=== PATIENT | female | born 1980 | race Caucasian/White ===

== ENCOUNTER 2022-11-23 08:43 | Emergency (ER) | payer MEDICAID, SELFPAY ==
[2022-11-23 09:11] VITALS: BP 121/57; PULSE 84; RESP 20; TEMP 36.9; O2SAT 99; BMI 30.9
[2022-11-23 10:33] VITALS: BP 140/66; PULSE 83; RESP 20; TEMP 37.1; O2SAT 99
--- NOTE | 2022-11-23 10:42 | ED_ITS ---
HPI - Back Pain/Injury General Chief Complaint: Back Pain/Injury Stated Complaint: Lower back pain/leg pain Time Seen by Provider: 11/23/22 10:13 Source: patient and family Mode of arrival: wheelchair Limitations: no limitations History of Present Illness HPI Narrative: 42 yo female presents to the ER c/o left lower back pain that started 2 days ago when she woke up. She reports the pain started mild and got progressively worse over the last 2 days. It is severe, sharp and throbbing in her left lower back, and radiates to her left buttock and left lower extremity. She has never had pain like this before. No injury or falls. No numbness, weakness or tingling in the left leg just pain. No urinary or bowel incontinence. She has not taken any medications for the pain. MD elicited complaint: back pain Onset (ago): day(s) (2) Timing: progressively worsening Severity: severe Pain scale (0-10): 10 Similar Symptoms Previously: Yes Quality: sharp and spasming Location: left lower back Radiation: buttocks and left upper leg Exacerbating factors: movement and walking Relieving factors: immobilization and supine Context: unknown Associated symptoms: denies other symptoms Work related injury: No Related Data Previous Rx's Medication Instructions Recorded cyclobenzaprine 10 mg tablet 10 mg PO TID PRN muscle spasm #14 11/23/22 tabs lidocaine 5 % topical patch 1 patch topical DAILY #15 ea 11/23/22 (Lidoderm) oxycodone 5 mg tablet 5 mg PO Q8H PRN pain #6 tabs 11/23/22 prednisone 20 mg tablet 40 mg PO DAILY #10 tabs 11/23/22 Allergies Allergy/AdvReac Type Severity Reaction Status Date / Time No Known Allergies Allergy Verified 11/23/22 09:18 Review of Systems Review of Systems: Yes all other systems are reviewed and are negative [facility] Social History Social History Advance Directives: No Advance Directives Information Provided: No Physical Exam Vital Signs: Vital Signs: Last Vital Signs Temp 98.7 F 11/23/22 10:33 Pulse 83 11/23/22 10:33 Resp 20 11/23/22 10:33 BP 140/66 H 11/23/22 10:33 Pulse Ox 99 11/23/22 10:33 O2 Del Method 11/23/22 10:33 BMI result Body Mass Index 30.9 Appearance: Alert. Oriented X3. No acute distress. HEENT: normal inspection CVS: Normal heart rate and rhythm. Pulses normal. Respiratory: No respiratory distress. Skin: Skin warm and dry. Normal skin color. Normal skin turgor. No rashes. Back: low lumbar and SI joint tenderness. no midline tenderness. limited ROM due to pain. Extremities: normal inspection x4. +straight leg raise test on the left at 30 degrees Neuro: Oriented X 3. normal DTR, slow and steady gait, nonfocal Course Course Course Narrative: 42 yo female presenting with nontraumatic left lower back pain raditing to buttock and left leg. No red flag symptoms of LBP. Exam and clinical presentation are c/w sciatica. Will treat with prednisone, toradol, oxycodone and reassess. Reevaluation(s) Reevaluation #1: pain improved. up ambulating to the bathroom indendently. stable for d/c home with pain control and outpatient follow up. Medications Administered Discontinued Medications Generic Name Dose Route Start Last Admin Trade Name Chesterq PRN Reason Stop Dose Admin Acetaminophen 975 mg 11/23/22 10:30 11/23/22 10:47 Acetaminophen 325 Mg Tablet PO 11/23/22 10:31 975 mg ONCE ONE Administration Ketorolac Tromethamine 30 mg 11/23/22 10:30 11/23/22 10:47 Ketorolac Tromethamine 30 Mg/Ml Vial IM 11/23/22 10:31 30 mg ONCE ONE Administration Oxycodone HCl 5 mg 11/23/22 10:30 11/23/22 10:48 Oxycodone Hcl Immed Release 5 Mg Tablet PO 11/23/22 10:31 5 mg ONCE ONE Administration Oxycodone HCl 5 mg 11/23/22 12:27 11/23/22 12:30 Oxycodone Hcl Immed Release 5 Mg Tablet PO 11/23/22 12:28 5 mg ONCE ONE Administration Prednisone 40 mg 11/23/22 10:30 11/23/22 10:47 Prednisone 20 Mg Tablet PO 11/23/22 10:31 40 mg ONCE ONE Administration Medical Decision Making Differential Diagnosis Differential Diagnoses: The differential diagnosis associated with the presentation includes Inflammatory disorders, malignancy, , trauma, osteoporosis, nerve root compression, radiculopathy, plexopathy, degenerative disc disease, disc herniation, spinal stenosis, sacroiliac joint dysfunction, facet joint injury, doubt any infection including epidural abscess or diskitis Independent Historian Clinical information obtained from an independent historian. History obtained from or confirmed by: Other (daughter helps provide history ) Tests considered The following testing was considered but not selected: imaging considered however given no trauma and no red flag symptoms, was not ordered on today's visit Prescription Management I considered prescription management with: Pain Medication Critical Care Time Critical Care Time Critical Care Time: No Discharge Plan Discharge Clinical Impression: Sciatica Patient Disposition: Home, Self-Care Instructions: Sciatica (ED), Lower Back Exercises (ED) Additional Instructions: No bending, lifting or twisting. Use ice several times per day for 20 minutes at a time for the next 48 hours and then change to heat. Take medications as prescribed to help with pain and discomfort. Follow up with your Primary Care Doctor this week. If your pain worsens, if you develop new numbness, tingling, weakness, loss of function or incontinence call 911 or come back to the ER right away for evaluation. Sin doblar, levantar o torcer. Use hielo varias veces al d?a grisel 20 minutos a la vez grisel las pr?ximas 48 horas y luego cambie a calor. [place] los medicamentos seg?n lo prescrito para ayudar con el dolor y la incomodidad. Raji un seguimiento con edwards m?dico de atenci?n primaria esta semana. Si edwards dolor empeora, si desarrolla un nuevo entumecimiento, hormigueo, debilidad, p?rdida de funci?n o incontinencia, llame al 911 o regrese a la rachele de emergencias de inmediato para santos evaluaci?n. Prescriptions: New prednisone 20 mg tablet 40 mg PO DAILY Qty: 10 0RF cyclobenzaprine 10 mg tablet 10 mg PO TID PRN (Reason: muscle spasm) Qty: 14 0RF lidocaine [Lidoderm] 5 % adhesive patch,medicated 1 patch topical DAILY Qty: 15 0RF Rx Instructions: leave on most painful area for up to 12 hrs oxycodone 5 mg tablet 5 mg PO Q8H PRN (Reason: pain) Qty: 6 0RF Rx Instructions: Partial Fill upon patient request. Referrals: [place],[facility] [Primary Care Provider] - (sciatica) Print Language: Namibian
[2022-11-23] MEDS: Acetaminophen 325 MG TABLET 975 MG PO (10:47)
[2022-11-23] MEDS: predniSONE 20 MG TABLET 40 MG PO (10:47)
[2022-11-23] MEDS: Ketorolac Tromethamine 30 MG/ML VIAL IM (10:47)
[2022-11-23] MEDS: oxyCODONE HCl Immed Release 5 MG TABLET PO ×2 (10:48→12:30)
== END 2022-11-23 13:53 | disposition home or self-care (01) ==
PROVIDERS: Emergency Provider Emergency Medicine
DX: M54.42 Lumbago with sciatica, left side (principal)
CPT/HCPCS: 96372; 99283; 99284; J1885

== ENCOUNTER 2023-05-12 16:00 | Outpatient (RCR) | payer MEDICAID, SELFPAY ==
--- NOTE | 2023-02-01 12:44 | MHC.PT.EP ---
[facility] [place] Office [place] Office [place] Office [address] Nery Rios [address] [phone] F: [phone] F: [phone] F: [phone] F: [phone] Physical Therapy Plan of Care Date of Evaluation: Date of Surgery: Diagnosis: Bilateral Sciatica (MD Dx) lumbar radiculopathy from mechanical dysfunction (PT Dx) extension bias Assessment: Patient is a 42 y.o. Greek speaking female who is referred to PT by ANAND Carrillo, with Dx of bilateral sciatica. PT diagnosis is lumbar radiculopathy from mechanical dysfunction, responds to extension biased exercises. Patient impairments include pain, limited ROM, weakness, poor postures and positioning. Patient current functional limitations are getting out of bed, sitting, bending, cleaning, prolonged walking. Patient will benefit from skilled PT to address aforementioned impairments and functional limitations to meet established goals. Frequency and Duration: The patient will be seen 2x/week for 4 weeks Short Term Goals: 2 weeks Patient demonstrates consistency and independence with HEP to self manage symptoms. Patient is able to verbalize understanding of centralization versus peripheralization of lumbar symptoms. 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 Patient presents with increased lumbar extension AROM 20 degrees to be able to ambulate long distances. Treatment Plan: Modalities to reduce pain, spasms and effusion. Manual therapy to restore motion and function. Therapeutic exercise to improve strength and flexibility. Neuromuscular re-education for posture and balance. Therapeutic activities to return to functional activities of daily living. Electronically signed by: Rickie Lau, PT, DPT Please sign and return to therapist. Thank you for your referral.
--- NOTE | 2023-07-11 09:40 | MHC.PT.DC ---
[facility] [place] Office [place] Office [place] Office [address] Nery Rios [address] [phone] F: [phone] F: [phone] F: [phone] F: [phone] Physical Therapy Discharge Report Diagnosis: Bilateral Sciatica (MD Dx) lumbar radiculopathy from mechanical dysfunction (PT Dx) extension bias Date of Surgery: Date of Evaluation: 02/01/23 Date of Discharge: 05/12/23 Treatments to Date: 9 Cancellations to Date: 4 No Shows to Date: 2 Discharge Status: Improved Function Independent with HEP Discharge Summary: Patient completed course of PT; Last treatment assessment includes: Pt independent w/HEP. Lx Ext N . Improved Oswestry recorded. D/C to HEP. Electronically signed by: Rickie Lau, PT, DPT Please sign and return to therapist. Thank you for your referral.
== END 2023-07-11 09:41 | disposition home or self-care (01) ==
LOC: HO.PT 16:00
PROVIDERS: PCP Registered Nurse; Visit Provider Registered Nurse
DX: M54.31 Sciatica, right side (principal); M54.32 Sciatica, left side
CPT/HCPCS: 97110; 97140; 97161; 97530

== ENCOUNTER 2023-12-13 16:07 | Outpatient (REF) | payer SELFPAY ==
[2023-12-13 17:28] LABS: MANUAL DIFF FLAG NO
[2023-12-13 17:43] LABS: Estimated Average Glucose 120 mg/dL; Hemoglobin A1c % 5.8 % (<6.0)
[2023-12-13 17:48] LABS: Basophils Percent Auto 0.4 % (0-2); Eosinophils Absolute Auto 0.2 X10*3/uL (0.0-0.4); Eosinophils Percent Auto 2.4 % (0-4); Hematocrit 40.9 % (37.0-47.0); Hemoglobin 12.8 g/dl (12.0-16.0); Imm Gran Abs Auto 0.03 X10*3/uL (0.00-0.03); Imm Gran Pct Auto 0.4 % (0.0-0.4); Lymphocytes Absolute Auto 2.2 X10*3/uL (1.2-4.9); Lymphocytes Percent Auto 31.7 % (20-40); Mean Corpuscular HGB Conc 31.3 g/dl (31.0-35.0); Mean Corpuscular Hemoglobin 22.5 pg (27.0-33.0); Mean Platelet Volume 9.4 fL (9.4-12.3); Monocytes Absolute Auto 0.6 X10*3/uL (0.1-1.2); Monocytes Percent Auto 9.1 % (2-11); Neutrophils Absolute Auto 3.8 x10*3/uL (2.0-8.3); Platelet Count 440 X10*3/uL (160-400); Red Blood Count 5.68 X10*6/uL (4.20-5.50); Red Cell Distribution Width 14.3 % (11.0-16.0); White Blood Count 6.8 X10*3/uL (4.8-10.8)
[2023-12-13 18:14] LABS: Alanine Aminotransferase 18 U/L (0-31); Albumin Level 4.4 g/dL (3.5-5.0); Alkaline Phosphatase 119 U/L (39-117); Anion Gap 12 (12-20); Aspartate Amino Transferase 18 U/L (5-31); Bilirubin Direct 0.1 mg/dL (0.0-0.5); Bilirubin Total 0.3 mg/dL (0.0-1.0); Blood Urea Nitrogen 13 mg/dL (9-16); Calcium 9.6 mg/dL (8.4-10.2); Carbon Dioxide 28 mmol/L (22-29); Chloride 103 mmol/L (96-108); Cholesterol 269 mg/dL (<200); Estimated Glomerular Filt Rate > 60; Glucose Random 79 mg/dL (60-115); HDL Cholesterol 47 mg/dL (>40); LDL Cholesterol Calculated 148 mg/dL (<100); Potassium 4.2 mmol/L (3.3-5.1); Sodium 139 mmol/L (135-145); Total Protein 7.8 g/dL (6.5-8.0); Triglycerides 374 mg/dL (<150)
[2023-12-13 18:31] LABS: TSH reflex Free T4 1.17 uIU/mL (0.32-4.0)
[2023-12-14 02:51] LABS: HIV AB/AG Nonreactive (Nonreactive); HIV Num 1 0.05 S/CO (0.00-0.99); ~HepC Num1 0.09 S/CO (0.00-0.79); ~Hepatitis C Antibody Nonreactive (Nonreactive)
[2023-12-15 21:39] LABS: Rubella IgG Antibody 3.66 Index
== END 2023-12-13 16:08 | disposition home or self-care (01) ==
LOC: HO.HHCL 16:07
PROVIDERS: Visit Provider Internal Medicine
DX: Z00.00 Encounter for general adult medical examination without abnormal findings (principal); Z11.4 Encounter for screening for human immunodeficiency virus [HIV]
CPT/HCPCS: 36415; 80048; 80061; 80076; 83036; 84443; 85025; 86735; 86762; 86765; 86803; 87389

== ENCOUNTER → 2023-12-16 16:00 | Outpatient (BNV) | payer MEDICAID, SELFPAY | PROVIDERS: PCP Registered Nurse; Visit Provider Radiology Diagnostic Radiology | DX: Z12.31 Encounter for screening mammogram for malignant neoplasm of breast (principal) | CPT/HCPCS: 77063; 77067 ==

== ENCOUNTER 2023-12-16 16:04 | Outpatient (REF) | payer MEDICAID, SELFPAY ==
--- NOTE | ~2023-12-16 | MM_ITS ---
EXAMINATION: MM SCREENING DIGITAL BREAST TOMOSYNTHESIS, BILATERAL CLINICAL INFORMATION: Screening. Asymptomatic. COMPARISON: Mammography: This is a baseline mammogram. TECHNIQUE: Digital breast tomosynthesis is performed in both the craniocaudal and mediolateral oblique views along with computer-aided detection (CAD). Synthesized 2D images are generated from the tomosynthesis. FINDINGS: The breasts are heterogeneously dense, which may obscure small masses (ACR BI-RADS breast composition Category c). There are no significant masses, abnormal calcifications, or other abnormalities. MM/MM tomosynthesis screening BI IMPRESSION: No mammographic evidence of malignancy. ASSESSMENT: BI-RADS BI-RADS 1 - Negative RECOMMENDATION: Routine annual mammography screening. 1 year F/U This examination should not preclude the clinical evaluation of a suspicious palpable abnormality. This patient's information was entered into a reminder system with a target due date for their next mammogram.
== END 2023-12-16 16:05 | disposition home or self-care (01) ==
LOC: HO.MAMMO 16:04
PROVIDERS: PCP Registered Nurse; Visit Provider Registered Nurse
DX: Z12.31 Encounter for screening mammogram for malignant neoplasm of breast (principal)
CPT/HCPCS: 77063; 77067

== ENCOUNTER 2023-12-22 15:14 | Outpatient (REF) | payer MEDICAID, SELFPAY ==
[2023-12-24 19:53] LABS: TS Negative Control Passed; TS Panel A 0; TS Panel B 0; TS Positive Control Passed; TSpotTB Negative (Negative)
== END 2023-12-22 15:15 | disposition home or self-care (01) ==
LOC: HO.HHCL 15:14
PROVIDERS: Visit Provider Internal Medicine
DX: Z00.00 Encounter for general adult medical examination without abnormal findings (principal)
CPT/HCPCS: 36415; 86481

== ENCOUNTER 2024-06-01 09:22 | Outpatient (AMB) | payer MEDICAID, SELFPAY ==
[2024-06-01 09:34] VITALS: BP 120/70; BMI 31.9
--- NOTE | 2024-06-01 09:34 | MHC.OFFVIS ---
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 She moved here from [place] 2 years ago. 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 She does not exercise per se but she is very busy taking care of the kids at day care. She does experience monthly breast tenderness that goes along with when she would expect get her periods and she also occasionally has a little twinge of discomfort on left or right side but mostly on the left periodically possible that that may correspond to before her breast symptoms. [facility] Surgical History (Updated 06/01/24 @ 10:15 by Natasha White CNM) S/P Family History Father HTN (hypertension) Mother HTN (hypertension) Social History (Updated 06/01/24 @ 09:37 by Mariaelena Tay CMA) Alcohol intake: never Patient Tobacco Use Status: Never used Tobacco Female Reproductive History Menstrual control method: none Total pregnancies: 2 Full term: 2 History of abnormal pap smear: No (previous pap ,unknown) Date of Mammogram: 12/16/23 (neg.) Physical Exam Vital Signs: Last Vital Signs BP 120/70 06/01/24 09:34 BMI result Body Mass Index 31.9 Const General: healthy appearing, comfortable, no acute distress, well developed and alert Nutritional Appearance: average body habitus Orientation/consciousness: patient oriented x3 Limitations: no limitations HEENT Head: Yes normocephalic Neck Neck: Yes normal visual inspection Chest Chest palpation & inspection: normal inspection of the chest Breast/axilla inspection: normal inspection of the breasts and normal inspection of the axillae Breast/axilla palpation: normal palpation of the breasts and normal palpation of the axillae Resp Effort & Inspection: normal respiratory effort GI Inspection: Yes normal to inspection, No Abdominal wall edema and No distended Palpation (GI): Soft to palpation and nontender Other: External exam completely within normal limits vagina pink and moist. Multiparous appearing cervix clearly present long close thick mobile nontender a moist slightly friable with Pap difficult to palpate what amount of uterine tissue was still present adnexa nontender good tone with Kegel General: Yes bladder normal to palpation External Female Exam: normal external appearance and normal appearance of the urethra Speculum Exam - Vagina: normal appearance of the vagina, normal palpation and normal vaginal discharge Speculum Exam - Cervix: normal appearance of the cervix, normal palpation and nontender Bimanual exam- vagina & uterus: normal bimanual exam, normal palpation, bladder normal to palpation, consistency normal, normal palpation, No Cervical tenderness present, non-tender and no cervical motion tenderness Bimanual Exam- Adnexa, other: normal adnexae, no masses, normal and No adnexal tenderness Neuro General: patient oriented x3 Results Reviewed Results Reviewed: [facility] [address] [place], [place] [address] Mammography Report Signed Patient: Manny Welsh MR#: [id number] : 1980 Acct:[id number] Age/Sex: 43 / F ADM Date: 12/16/23 Loc: MAMMO Attending Dr: Xenia MICHEL Ordering Physician: Xenia Alfaro Results: 1Negative Date of Service: 12/16/23 Follow Up: 1 Year From Original Mammogram Procedure(s): MM tomosynthesis screening BI Accession Number(s): [id number] cc: Xenia Alfaro~ EXAMINATION: MM SCREENING DIGITAL BREAST TOMOSYNTHESIS, BILATERAL CLINICAL INFORMATION: Screening. Asymptomatic. COMPARISON: Mammography: This is a baseline mammogram. TECHNIQUE: Digital breast tomosynthesis is performed in both the craniocaudal and mediolateral oblique views along with computer-aided detection (CAD). Synthesized 2D images are generated from the tomosynthesis. FINDINGS: The breasts are heterogeneously dense, which may obscure small masses (ACR BI-RADS breast composition Category c). There are no significant masses, abnormal calcifications, or other abnormalities. MM/MM tomosynthesis screening BI IMPRESSION: No mammographic evidence of malignancy. ASSESSMENT: BI-RADS BI-RADS 1 - Negative RECOMMENDATION: Routine annual mammography screening. 1 year F/U This examination should not preclude the clinical evaluation of a suspicious palpable abnormality. This patient's information was entered into a reminder system with a target due date for their next mammogram. Dictated By: Marguerite Lopez MD Signed By: <Electronically signed by Marguerite Lopez MD in OV> 01/04/241 DD/ 1620 TD/TT: Gill Box Operator: Assessment & Plan Assessment & Plan (1) Hx of hysterectomy with hx of benign disease or negative Pap smears: Comment: She had the hysterectomy and [place] about 10 years ago she was not sure what they took out. She know she still has a ovaries her cervix is clearly present. Pap smear done and get ultrasounds to ascertain. Code(s): Z90.710 - Acquired absence of both cervix and uterus Category: Surgical (2) Well woman exam with routine gynecological exam: Code(s): Z01.419 - Encounter for gynecological examination (general) (routine) without abnormal findings Category: Medical (3) Prediabetes: Comment: Per patient she is working on eating healthy and weight loss Code(s): R73.03 - Prediabetes Category: Medical (4) Elevated lipids: Comment: Per patient Code(s): E78.5 - Hyperlipidemia, unspecified Category: Medical Plan -----Discussed in this visit the following: healthy balanced diet, regular and consistent exercise, getting recommended health screens, doing the best she can for her particular health concerns, kegel exercises, pap smear screening and followup recommendations, mammography screening and SBE, normal changes in cycles in her life stage--- . Discussed that it is hard to know was left inside she may just have her cervix and ovaries. We will get an ultrasound to see what was what is present. Given that she has a cervix she may need to continue with regular cervical cancer screening. She is working on healthier and losing weight managing blood sugar and cholesterol . She is up-to-date on her mammograms she has no other concerns we will have a visit after the ultrasound to review it. Orders: Orders PAP + HPV E6/E7 rfx 18/45 Today Z01.419 - Encounter for gynecological examination (general) (routine) without abnormal findings CT NG by PCR Today Z20.2 - Contact with and (suspected) exposure to infections with a predominantly sexual mode of transmission Bacterial Vaginosis Panel Today N89.8 - Other specified noninflammatory disorders of vagina US pelvic and transvaginal Today E78.5 - Hyperlipidemia, unspecified, R73.03 - Prediabetes, Z01.419 - Encounter for gynecological examination (general) (routine) without abnormal findings, Z90.710 - Acquired absence of both cervix and uterus Medications: Discontinued cyclobenzaprine Discontinued Reason: Patient Completed Course 10 mg PO TID PRN 14 tabs 0RF muscle spasm lidocaine 5% (Lidoderm) leave on most painful area for up to 12 hrs Discontinued Reason: Patient Completed Course 1 patch topical DAILY 15 ea 0RF oxycodone Partial Fill upon patient request. Discontinued Reason: Patient no longer taking 5 mg PO Q8H PRN 6 tabs 0RF pain prednisone Discontinued Reason: Patient Completed Course 40 mg (2 x 20 mg) PO DAILY 10 tabs 0RF Coding Level of Care Code New Pt Prev Care 40-64y(84970) Diagnoses Hx of hysterectomy with hx of benign disease or negative Pap smears Z90.710 Well woman exam with routine gynecological exam Z01.419 Prediabetes R73.03 Elevated lipids E78.5
== END 2024-06-01 10:16 | disposition home or self-care (01) ==
LOC: HO.HWSM 09:22
PROVIDERS: PCP Registered Nurse; Visit Provider Advanced Practice Midwife
DX: Z90.710 Acquired absence of both cervix and uterus (principal); Z01.419 Encounter for gynecological examination (general) (routine) without abnormal findings; R73.03 Prediabetes; E78.5 Hyperlipidemia, unspecified
CPT/HCPCS: 99386

== ENCOUNTER 2024-06-01 09:22 | Outpatient (REF) | payer MEDICAID, SELFPAY ==
[2024-06-02 02:37] LABS: CT PCR NOT DETECTED (Not Detect.); NG PCR NOT DETECTED (Not Detect.)
[2024-06-02 11:25] LABS: Bacterial Vaginosis PCR POSITIVE (Negative); Candida Group PCR NOT DETECTED (Not Detect); Candida glab krusei PCR NOT DETECTED (Not Detect); Trichomonas vaginalis PCR NOT DETECTED (Not Detect)
[2024-06-06 15:19] LABS: HPV mRNA E6/E7 Not Detected (Not Detected)
== END 2024-06-01 09:23 | disposition home or self-care (01) ==
LOC: HO.LAB 09:22
PROVIDERS: PCP Registered Nurse; Visit Provider Advanced Practice Midwife
DX: Z20.2 Contact with and (suspected) exposure to infections with a predominantly sexual mode of transmission (principal); N89.8 Other specified noninflammatory disorders of vagina; Z90.710 Acquired absence of both cervix and uterus; Z01.419 Encounter for gynecological examination (general) (routine) without abnormal findings; R73.03 Prediabetes; E78.5 Hyperlipidemia, unspecified
CPT/HCPCS: 0352U; 36415; 87491; 87591; 87624; 88175; 99386

== ENCOUNTER 2024-06-06 14:02 | Outpatient (REF) | payer MEDICAID, SELFPAY ==
--- NOTE | ~2024-06-06 | US_ITS ---
EXAM: Pelvic Ultrasound CLINICAL INDICATION: Evaluate for presence of cervix status post hysterectomy. COMPARISON: None available TECHNIQUE: The pelvis was evaluated using transabdominal and transvaginal imaging. FINDINGS: Uterus is surgically absent. The cervix is visualized measuring approximately 1.8 cm in length. Trace amount of fluid is noted within the cervical canal. The right ovary measures approximately 1.9 x 2.1 x 2.8 cm and is normal. The left ovary was not clearly visualized. There are no abnormal adnexal masses. There is no free fluid in the pelvis. US/US pelvic and transvaginal IMPRESSION: Cervix is visualized measuring approximately 1.8 cm in length. Trace amount of fluid is noted within the cervical canal. Electronically signed by: Tejas Meza MD 06/22/2024 06:40 AM EDT
== END 2024-06-06 14:03 | disposition home or self-care (01) ==
LOC: HO.US 14:02
PROVIDERS: PCP Registered Nurse; Visit Provider Advanced Practice Midwife
DX: Z90.710 Acquired absence of both cervix and uterus (principal); E78.5 Hyperlipidemia, unspecified; R73.03 Prediabetes
CPT/HCPCS: 76830; 76856

== ENCOUNTER 2024-07-04 15:08 | Outpatient (AMB) | payer MEDICAID, SELFPAY ==
[2024-07-04 15:09] VITALS: BMI 31.9
--- NOTE | 2024-07-04 15:09 | MHC.OFFVIS ---
Vital Signs 07/04/24 15:09 Height 5 ft 4 in Weight 186 lb BMI 31.9 Intake Visit Reasons: Ultrasound Follow up Staff Writer Required: No Information Interpreted: clinical only Front Desk Assistant: Front Desk Assistant Present Allergies No Known Allergies Allergy (Verified 07/04/24 15:09) Medication List - Last Reconciled 07/04/24 by Natasha White CNM No Known Home Meds Is last menstrual period known: No HPI HPI Ultrasound Follow up: Details: Patient is here with her son to review her ultrasound that was done to ascertain what was taken out when she had her hysterectomy as I had visualized cervix when I did 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 She tells me that she had the hysterectomy because after she had had her children and her tubes tied there was a period of time when she was having very heavy long periods and was 1 time when it was not stopping for over a month and so the pedal assembler offered her since she was done with child there to just take out the uterus and she said to did go ahead do it. She is very sure she never had an abnormal Pap smear. [facility] Surgical History S/P Family History Father HTN (hypertension) Mother HTN (hypertension) Social History Alcohol intake: never Patient Tobacco Use Status: Never used Tobacco Female Reproductive History Menstrual Age of Menarche: 14 Duration of menses: 3-5 days control method: none Total pregnancies: 2 Full term: 2 Date of last pap smear: 06/01/24 (negative/;06/01/24 neg pap w neg hpv) Date of Mammogram: 12/16/23 (neg) Physical Exam Vital Signs: BMI result Body Mass Index 31.9 Results Reviewed Results Reviewed: [address] [address] Ultrasound Report Signed Patient: Manny Welsh MR#: [id number] : 1980 Acct:[id number] Age/Sex: 44 / F ADM Date: 06/06/24 Loc: HO.US Attending Dr: Natasha White CNM Ordering Physician: Natasha White CNM Date of Service: 06/06/24 Procedure(s): US pelvic and transvaginal Accession Number(s): [id number] cc: Natasha White CNM; Xenia Alfaro [employer]~ EXAM: Pelvic Ultrasound CLINICAL INDICATION: Evaluate for presence of cervix status post hysterectomy. COMPARISON: None available TECHNIQUE: The pelvis was evaluated using transabdominal and transvaginal imaging. FINDINGS: Uterus is surgically absent. The cervix is visualized measuring approximately 1.8 cm in length. Trace amount of fluid is noted within the cervical canal. The right ovary measures approximately 1.9 x 2.1 x 2.8 cm and is normal. The left ovary was not clearly visualized. There are no abnormal adnexal masses. There is no free fluid in the pelvis. US/US pelvic and transvaginal IMPRESSION: Cervix is visualized measuring approximately 1.8 cm in length. Trace amount of fluid is noted within the cervical canal. Electronically signed by: Tejas Meza MD 06/22/2024 06:40 AM EDT Dictated By: Tejas Meza MD Signed By: <Electronically signed by Tejas Meza MD in OV> 06/22/24 0640 DD/ 28 TD/TT: 06/06/24 1439 University Administrator: PD 06/01/2024 Pap is negative with negative HPV (not in pathology section it was sent to [email or web address] Assessment & Plan Assessment & Plan (1) Cervical cancer screening: Comment: 06/01/2024 Pap is negative with negative HPV.; patient should continue with regular Pap smears every 5 years in her age group. Code(s): Z12.4 - Encounter for screening for malignant neoplasm of cervix Category: Medical (2) Hx of hysterectomy with hx of benign disease or negative Pap smears: Comment: She had the hysterectomy and Rico about 10 years ago she was not sure what they took out. She know she still has a ovaries her cervix is clearly present. Pap smear done and get ultrasounds to ascertain; ultrasound also confirms presence of 1.8 cm cervix Code(s): Z90.710 - Acquired absence of both cervix and uterus Category: Surgical Plan I reviewed the findings of the ultrasound which indeed confirmed that she had her uterus removed but she still has a cervix in place. In addition her Pap smear was negative and with negative HPV. Given this, she inquired about did she need to continue getting Pap smears. Thinking through the reasoning about this it would make sense for her to continue with every 5 year Pap smears as potentially she she could still develop an abnormality her cervix. Discussed also annual protective signal operator exams though she has no problems whatsoever and no concerns about STDs if she decided to skip 1 it be the end of the world however she needs to continue with her yearly mammograms and she should be seen some healthcare provider yeast annually. Additionally if she missed more than 3 years she would considered a new patient and would have to start all over again. Discussed that there may very well be a few endometrial cells still present towards the superior aspect of the cervix that accounts for her having a little bit of staining every month at the time of her ?menses?. Coding Level of Care Code Est Pt Level 3 (28228) Diagnoses Cervical cancer screening Z12.4 Hx of hysterectomy with hx of benign disease or negative Pap smears Z90.710 Time Spent (min) 20 Comment 100% spent [id number] reviewing and explaining findings.
== END 2024-07-04 16:01 ==
PROVIDERS: PCP Registered Nurse; Visit Provider Advanced Practice Midwife
DX: Z12.4 Encounter for screening for malignant neoplasm of cervix (principal); Z90.710 Acquired absence of both cervix and uterus
CPT/HCPCS: 99213

== ENCOUNTER → 2024-07-04 15:08 | Outpatient (BNVA) | payer MEDICAID, SELFPAY | PROVIDERS: PCP Registered Nurse; Visit Provider Advanced Practice Midwife | DX: Z90.710 Acquired absence of both cervix and uterus (principal); Z12.4 Encounter for screening for malignant neoplasm of cervix | CPT/HCPCS: 99212 ==

== ENCOUNTER 2025-01-21 08:06 | Outpatient (REF) | payer MEDICAID, SELFPAY ==
[2025-01-21 12:36] LABS: MANUAL DIFF FLAG NO
[2025-01-21 12:48] LABS: Basophils Percent Auto 0.6 % (0-2); Eosinophils Absolute Auto 0.1 X10*3/uL (0.0-0.4); Eosinophils Percent Auto 2.2 % (0-4); Hematocrit 37.9 % (37.0-47.0); Hemoglobin 12.1 g/dl (12.0-16.0); Imm Gran Abs Auto 0.02 X10*3/uL (0.00-0.03); Imm Gran Pct Auto 0.4 % (0.0-0.4); Lymphocytes Absolute Auto 1.5 X10*3/uL (1.2-4.9); Lymphocytes Percent Auto 27.5 % (20-40); Mean Corpuscular HGB Conc 31.9 g/dl (31.0-35.0); Mean Corpuscular Volume 71.9 fL (80.0-98.0); Mean Platelet Volume 9.7 fL (9.4-12.3); Monocytes Absolute Auto 0.5 X10*3/uL (0.1-1.2); Monocytes Percent Auto 8.7 % (2-11); Neutrophils Absolute Auto 3.3 x10*3/uL (2.0-8.3); Neutrophils Percent Auto 60.6 % (45-73); Platelet Count 382 X10*3/uL (160-400); Red Blood Count 5.27 X10*6/uL (4.20-5.50); Red Cell Distribution Width 14.4 % (11.0-16.0); White Blood Count 5.4 X10*3/uL (4.8-10.8)
[2025-01-21 13:09] LABS: Estimated Average Glucose 126 mg/dL; Total Hemoglobin (HGBA1C) 3203.9979 umol/L
[2025-01-21 13:14] LABS: HIV AB/AG Nonreactive (Nonreactive); HIV Num 1 0.06 S/CO (0.00-0.99); ~HepC Num1 0.13 S/CO (0.00-0.79); ~Hepatitis C Antibody Nonreactive (Nonreactive)
[2025-01-21 13:21] LABS: Alanine Aminotransferase 17 U/L (0-31); Albumin Level 4.2 g/dL (3.5-5.0); Alkaline Phosphatase 93 U/L (39-117); Anion Gap 11 (12-20); Aspartate Amino Transferase 19 U/L (5-31); Bilirubin Total 0.4 mg/dL (0.0-1.0); Blood Urea Nitrogen 11 mg/dL (9-16); Carbon Dioxide 25 mmol/L (22-29); Chloride 106 mmol/L (96-108); Cholesterol 263 mg/dL (<200); Estimated Glomerular Filt Rate > 60; Glucose Random 111 mg/dL (60-115); HDL Cholesterol 47 mg/dL (>40); LDL Cholesterol Calculated 173 mg/dL (<100); Potassium 4.1 mmol/L (3.3-5.1); Sodium 138 mmol/L (135-145); Total Protein 7.4 g/dL (6.5-8.0); Triglycerides 217 mg/dL (<150)
[2025-01-21 13:38] LABS: TSH reflex Free T4 0.94 uIU/mL (0.32-4.0)
[2025-01-23 09:48] LABS: Rubella IgG Antibody 2.68 Index
[2025-01-24 03:23] LABS: TS Negative Control Passed; TS Panel A 0; TS Panel B 3; TS Positive Control Passed; TSpotTB Negative (Negative)
== END 2025-01-21 08:07 | disposition home or self-care (01) ==
LOC: HO.HHCL 08:06
PROVIDERS: Visit Provider Internal Medicine
DX: Z00.00 Encounter for general adult medical examination without abnormal findings (principal); Z11.1 Encounter for screening for respiratory tuberculosis
CPT/HCPCS: 36415; 80053; 80061; 82306; 83036; 84443; 85025; 86481; 86735; 86762; 86765; 86787; 86803; 87389

== ENCOUNTER 2025-10-10 13:43 | Outpatient (REF) | payer MEDICAID, SELFPAY ==
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
--- NOTE | ~2025-10-10 | XR_ITS ---
EXAMINATION: XR KNEE, LEFT CLINICAL INFORMATION: 2 month of left knee pain COMPARISON: None available. TECHNIQUE: Four views of the left knee. FINDINGS: No fracture, dislocation, or suspicious bone lesion. Normal bone mineralization. Normal alignment. Joint spaces are preserved. No significant arthropathy. There is normal patellofemoral alignment without abnormal patellar tilt. There may be a subtle suprapatellar joint effusion. Soft tissues appear normal. XR/XR knee LT 4V IMPRESSION: 1. Possible suprapatellar joint effusion. 2. Otherwise normal left knee radiographs. Electronically signed by: Sreafin Wooten MD 10/10/2025 03:17 PM [facility]
--- OUTSIDE RECORDS SUMMARY | 2025-10-10 17:55 | XMS_ITS | Encounter Summary ---
Author Organization [employer] Address [address] [facility] [address] [place] [address] Care Team Providers Care Seafood Service Team Member Name Role Phone Xenia Alfaro MANAGER CONTACT Primary Care Provider [phone] Reason for Visit * Reason Comments Med Change Request Encounter Details Date Type Department Care Team (Late st Contact Info) Description 10/10/[address] [facility] [address] [place], [place] [phone] Jessi Wilkins MD [address] [place], [place] [phone] Acute pain of left knee Social History Tobacco Use Types Packs/Day Years Used Date Smoking Tobacco: Never Passive Smoke Exposure: Never Smokeless Tobacco: Never Alcohol Use Standard Drinks/Week Comments Never 0 [...] PM EST documented as of this encounter Plan of Treatment Not on file documented as of this encounter Visit Diagnoses Diagnosis Acute pain of left knee documented in this encounter Additional Health Concerns Assessment Noted Time PHQ-9 Depression Total Score: 0 01/05/20 25 2:11 PM EDT documented as of this encounter Care Teams Seafood Service Team Member Relationship Specialty Start Date End Date Xenia Alfaro FNP [address] [place] [phone] PCP - General Family Medicine 12/24/22 documented as of this encounter
--- OUTSIDE RECORDS SUMMARY | 2025-10-10 17:55 | XMS_ITS | Encounter Summary ---
Author Organization [employer] Address [address] [place] [address] Care Team Providers Care Jailer/Training Officer Name Role Phone Xenia Alfaro [facility] Primary Care Provider [phone] Encounter Details Date Type Department Care Team (Latest Contact Info) Description 10/08/2025 Travel Social History Tobacco Use Types Packs/Day Years [...] is your housing situation today? I have meñobrian quiroz 12/27/[address] you [...] documented as of this encounter Visit Diagnoses Not on filedocumented in this encounter Additional Health Concerns Assessment Noted Time PHQ-9 Depression Total Score: 0 01/05/20 25 2:11 PM EDT documented as of this encounter Care Teams Jailer/Training Officer Relationship Specialty Start Date End Date Xenia Alfaro FNP [address] [place] [phone] PCP - General Family Medicine 12/24/22 documented as of this encounter
--- OUTSIDE RECORDS SUMMARY | 2025-10-10 17:55 | XMS_ITS | Encounter Summary ---
Author Organization [employer] Address [address] [facility] [address] [place] [address] Care Team Providers Care Branch Retail Executive Name Role Phone Xenia Alfaro [facility] Primary Care Provider [phone] Reason for Visit * Reason Onset Date Comments call back 01/12/2023 Encounter Details Date Type Department Care Team ([facility] st Contact Info) Description 01/12/2023 Telephone [facility] MED[facility] [address] [place], [place] [phone] Xenia Alfaro [facility] [address] [place], [place] [phone] call back Social History Tobacco Use Types Packs/Day Years Used Date Smoking Tobacco: Never Smokeless Tobacco: Never Alcohol Use Standard Drinks/Week Comments Never 0 (1 standard drink = 0.6 oz pur e alcohol) Depression Answer Date Recorded Patient Health Questionnaire-9 Score 0 12/24/2022 Depression Answer Date Recorded Patient Health Questionnaire-2 Score 0 12/24/2022 Comments Unknown Sex and Gender Information Value Date Recorded Sex Assigned at Female 01/03/2025 2:05 PM EDT Legal Sex Female 12:26 PM EST Gender Identity Female 01/03/2025 2:05 PM EDT Sexual Orientation Don't know 12/24/2022 1: 48 PM EST COVID-19 Exposure Response Date Recorded In the last 10 days, have yo u been in contact with someone who was confirmed or suspected to have Coronavirus/COVID-19? No / Unsure 12/24/2022 1:46 PM EST documented as of this encounter Miscellaneous Notes * Telephone Encounter - Loyda oDbson RN - 01/13/2023 4:18 PM EDT TC X2 to pt regarding lab results. Labs were negative and titers show immunity to MMR. LVM to return call to nurses or if pt needs a copy of results can come in to HIM to mixing picker tender copy. * Telephone Encounter - Jean-Claude Brush - 01/12/2023 12:42 PM EDT Tc from pt returning call. Pt requesting a call back documented in this encounter Plan of Treatment Not on file documented as of this encounter Visit Diagnoses Not on filedocumented in this encounter Additional Health Concerns Assessment Noted Time PHQ-9 Depression Total Score: 0 12/25/19 2:07 PM EST documented as of this encounter Care Teams Branch Retail Executive Relationship Specialty Start Date End Date Xenia Alfaro FNP [address] [place] [address] PCP - General Family Medicine 12/24/22 documented as of this encounter
--- OUTSIDE RECORDS SUMMARY | 2025-10-10 17:55 | XMS_ITS | Clinical Summary ---
Author Organization [employer] Address [address] [facility] [address] [place] [address] Care Team Providers Care Microsoft Dynamics Manager Architect Name Role Phone Angelina [facility] Primary Care Provider [phone] Allergies No known active allergies Medications ibuprofen 600 MG tabletIndicatio ns:Bilateral sciatica TOME MARK TABLETA SANDY VECES AL JUAN 90 tablet 5 Active Acetaminophen 500 MG capsuleIndicati ons:Acute pain of left knee Take 1 capsule (500 mg) by mouth every 8 (eight) hours if needed for moderate pain or fever. 30 capsule 5 11/07/19 26 Active ibuprofen 600 MG tabletIndicatio ns:Acute pain of left knee Take 1 tablet (600 mg) by mouth every 8 (eight) hours if needed for moderate pain or fever. 30 tablet 5 11/07/19 26 Active Lidocaine 5 % creamIndication s:Acute pain of left knee Apply topically bid 30 g 3 5 Active Active Problems Problem Noted Date Diagnosed Date Tuberculosis screening 01/04/2025 Diminished vision 01/04/2025 Chronic pain of left knee 01/04/2025 Assessment & Plan (01/04/2025 4:18 PM EDT): I will refer patient for PT Encounter for preventive health examination 11/25 Assessment & Plan (01/04/2025 4:18 PM EDT): See HPI Encounter for screening mammogram for breast can cer 12/13/2023 Cervical cancer screening 12/13/2023 Sciatica 12/24/2022 Encounters Date Type Department Care Team Description 10/10/2025 Refill [facility] [address] [place] [address] Jessi Wilkins MD Acute pain of left knee 10/08/2025 6:40 PM EST Office Visit [facility] [address] [place] [phone] Jessi Wilkins MD Acute pain of left knee (Primary Dx) 10/08/2025 Travel from Last 3 Months Immunizations Immunization Administration Dates Next Due Influenza injectable quadrivalent preservative f ree 12/13/2023 Influenza, seasonal, injectable, preservative fr ee 01/04/2025 Pfizer Covid-19 Vaccine 12+ 01/04/2025, Family History Medical History Relation Name Comments Diabetes type II Father Diabetes type II Mother Osteoporosis Mother Colon cancer Mother's Brother Breast cancer Neg Hx Relation Name Status Comments Father Mother Mother's Brother Social History Tobacco Use Types Packs/Day Years [...] Don't know 12/24/2022 1: 48 PM EST Last Filed Vital Signs Vital Sign Reading Time Taken Comments Blood Pressure 145/96 10/08/2025 6:46 PM EST Pulse 100 10/08/2025 6:46 PM EST Temperature 37 C (98.6 F) 10/08/2025 6:46 PM EST Respiratory Rate 16 10/08/2025 6:46 PM EST Oxygen Saturation 98% 12/13/2023 3:00 PM EST Inhaled Oxygen Concentration - - Weight 90 kg (198 lb 6.4 oz) 10/08/2025 6:46 PM EST Height 162.6 cm (5' 4 ) 10/08/2025 6:46 PM EST Body Mass Index 34.06 10/08/2025 6:46 PM EST Plan of Treatment Health Maintenance Due Date Last Done Comments Disability Screening 1980 Family Planning (PISQ) 1997 HPV Vaccines (1 - 3-dose series) 1997 DTaP/Tdap/Td Vaccines (1 - Tdap) 2001 Hepatitis B Vaccines (1 of 3 - 19+ 3-dose series) 2001 COVID-19 Vaccine ( - 2024-2 6 season) 2025 01/04/2025, 12/13/2023 Influenza Vaccine (#1) 2025 , 12/13/2023 Mammogram 12/16/2025 12/16/2023 SDOH Screening 12/27/2025 12/27/2024 Alcohol/Substance Use Screening 01/04/2026 01/04/2025 Depression Screening 01/04/2026 01/04/2025, 01/04/2025 Diabetes: Hemoglobin A1C 01/21/2026 025, 12/13/2023, 12/24/2022 Tobacco Screening 10/08/2026 10/08/2025 Pap Smear 06/01/2027 06/01/2024 Cervical Cancer Screening 06/01/2029 HPV/Cotest 06/01/2029 06/01/2024 Zoster Vaccines (1 of 2) 2032 RSV Patients and Patients Aged 60 years or older (1 - 1-dose 75+ series) 2057 HIV Screening Completed 01/21/2025, 12/13/2023, 12/24/2022 Hepatitis C Screening Completed 01/21/2025 , 12/13/2023, 12/24/2022 HIB Vaccines Aged Out No longer eligi ble based on patient's age to complete this topic Hepatitis A Vaccines Aged Out No long er eligible based on patient's age to complete this topic IPV Vaccines Aged Out No longer eligi ble based on patient's age to complete this topic Meningococcal B Vaccine Aged Out No l onger eligible based on patient's age to complete this topic Meningococcal Vaccine Aged Out No francie robb eligible based on patient's age to complete this topic Pneumococcal Vaccine: Pediatrics (0 to 5 Years) and At-Risk Patients (6 to 49) Years Aged Out No longer eligible b ased on patient's age to complete this topic RSV under 20 months Aged Out No longe r eligible based on patient's age to complete this topic Rotavirus Vaccines Aged Out No longer eligible based on patient's age to complete this topic Procedures Procedure Name Priority Date/Time Associated Diagnosis Comments XR KNEE 4+ VIEWS LEFT Routine 10/10/2025 2:59 PM EST HEPATITIS C AB W/REFL TO HCV RNA, QN, PCR Routine 01/21/2025 8:09 AM EDT Encounter for preventive health examination HIV 1/2 ANTIGEN/ANTIBODY, FOURTH GENERATION W/RFL Routine 01/21/2025 8:09 AM EDT Encounter for preventive health examination HEMOGLOBIN A1C Routine 01/21/2025 8:09 AM EDT Encounter for preventive health examination THINPREP IMAGING PAP AND HPV MRNA E6/E7 WITH REFLEX TO HPV 16,18/45 Routine 06/01/2024 12:00 AM EDT BI MAMMOGRAM SCREENING TOMOSYNTHESIS BILATERAL Routine 12/16/2023 4:20 PM EST from Last 3 Months or Most Recently Relevant to Health Maintenance Results * XR Knee 4+ Views Left (10/10/2025 2:59 PM EST) Anatomical Region Laterality Modality Lower Extremities, Knee Left Radiogra phic Imaging 10/10/2025 2:59 PM EST Narrative 10/10/2025 3:20 PM EST [facility] [address] [place] [address] XRay Report Signed Patient: Manny Welsh MR# : [id number] : 1980 Acct:[id number] Age/Sex: 45 / F ADM Date: 10/10/25 Loc: .HHCX Attending Dr: Jessi Wilkins MD Ordering Physician: Jessi Wilkins MD Date of Service: 10/10/25 Procedure(s): XR knee LT 4V Accession Number(s): [id number] cc: Preeti Jones MD; Jessi Wilkins MD [...] by: Serafin Wooten MD 10/10/2025 03:17 PM EST Dictated By: Serafin Wooten MD Signed By: <Electronically signed by Serafin Wooten MD in OV> 10/10/25 1517 DD/ 1453 TD/TT: 10/10/25 1513 Tool Machinist: Procedure Note Donotuseinterpreter, Image - 10/10/2025 [facility] [address] [place] [address] XRay Report Signed Patient: Manny WelshMR# : [id number] : 1980Acct:[id number] Age/Sex: 45 / FADM Date: 10/10/25 [facility]: Jessi Wilkins MD Ordering Physician: Jessi Wilkins MD Date of Service: 10/10/25 Procedure(s): XR knee LT 4V Accession Number(s): [id number] cc: Preeti Jones MD; Jessi Wilkins MD [...] by: Serafin Wooten MD 10/10/2025 03:17 PM [facility] Dictated By: Serafin Wooten MD Signed By: <Electronically signed by Serafin Wooten MD in OV> 10/10/25 1517 DD/ 1459 TD/TT: 10/10/25 1513 Tool Machinist: Jessi Wilkins MD IMG XR PROCEDURES Final Re sult * Hepatitis C Antibody with Reflex to HCV, RNA, Quantitative, Real-Time PCR (01/21/2025 8:09 AM EDT) Hepatitis C Antibody Nonreactive Nonreactive [facility] Comment:Antibodies to HCV no t detected; does not exclude early acuteHCV infection. Blood Venous blood specimen / Unknown 01/21/2025 8:09 AM EDT 01/21/2025 12:30 PM EDT us Preeti Deluca MD LAB BLOOD ORDERABLES Final Result Performing Organization Address [facility]/ZIP Co de Phone Number [facility] [address] [place] [phone] * HIV-1/2 Antigen and Antibodies, Fourth Generation, with Reflexes (01/21/2025 8:09 AM EDT) HIV AB/AG Nonreactive Nonreactive [facility] Comment:HIV-1 p24 Ag and/or HIV-1/HIV-2 Ab not detected.A test result that is nonreactive does not exclude thepossibility of exposure to or infection with HIV-1 and/orHIV-2. Nonreactive results in this assay for individualswith prior exposure to HIV-1 and/or HIV-2 may be due toantigen and antibody levels that are below the limit ofdetection of this assay.The [employer] HIV Ag/Ab Combo assay result andsupplemental assay results should be interpreted inconjunction with the patient's clinical presentation,history and other laboratory results. If the results areinconsistent with clinical evidence, additional testing issuggested to confirm the result. Blood Venous blood specimen / Unknown 01/21/2025 8:09 AM EDT 01/21/2025 12:30 PM EDT us Preeti Deluca MD LAB BLOOD ORDERABLES Final Result Performing Organization Address [facility]/ZIP Co de Phone Number [facility] [address] [place] [phone] * Hemoglobin A1c (01/21/2025 8:09 AM EDT) Hemoglobin A1c 6.0 <6.0 % [facility] Comment:Hemoglobin A1C Refer ence Range Adults: 4.8 - 6.0 % Non diabetic: < 6.0 % Goal: < 7.0 %Additional Action Suggested: > 8.0 %Note: Hemoglobin A1c results are invalid for patients with abnormal amounts of HbF. Blood transfusions may impact the HbA1c concentration in the patient sample. Estimated Average Glucose 126 mg/dL [facility] Comment:eAG = Estimated ave rage glucose which is %A1C expressed asaverage glucose, using the formula of the W0F-KmmqtmkWnkieen Glucose study (ADAG), Diabetes Care, Vol.31,#8,May. 2007 Blood Venous blood specimen / Unknown 01/21/2025 8:09 AM EDT 01/21/2025 12:30 PM EDT us Preeti Deluca MD LAB BLOOD ORDERABLES Final Result [facility] [address] [place] [phone] * ThinPrep Imaging Pap and HPV mRNA E6/E7 with Reflex to HPV 16,18/45 (06/01/2024 12:00 AM EDT) HPV 16 RNA [facility] HPV 18/45 RNA [facility] HPV nRNA E6/E7 Not Detected Not Detected [facility] Comment:Methodology: Transcr iption-Mediated AmplificationThis assay detects E6/E7 viral messenger RNA (mRNA) from 14high-risk HPV types (16,18,31,33,35,39,45,51,52,56,58,59,66,68).Cervical sources are required for HPV testing.If a vaginal source from a patient who has had atotal hysterectomy with removal of cervix wassubmitted, please contact the testing laboratoryfor alternative testing options.For additional information, please refer tohttp://education.[employer]/faq/ZXL431l5(This link if provided for information/educational purposes only.)THIS TEST WAS PERFORMED AT:[facility] [place] [phone] MCGINNIS MD SOURCE: SEE NOTE [facility] Comment:None given Report Status: [facility] Clinical Information: SEE NOTE [facility] Comment:None given LMP: SEE NOTE [facility] Comment:NONE GIVEN Prev. PAP: SEE NOTE [facility] Comment:NONE GIVEN Prev. BX: SEE NOTE [facility] Comment:NONE GIVEN Statement Of Adequacy: SEE NOTE [facility] Comment:Satisfactory for viktor luation.Endocervical/transformation zone componentpresent. General Categorization: [facility] Interpretation/Result: SEE NOTE [facility] Comment:Cytology Results: Ne gative for intraepitheliallesion or malignancy. Cytology Comment SEE NOTE [facility] Comment:This Pap test has be en evaluated with computerassisted technology.Microscopic features present suggestive of an interfering substance,including cellular debris, mucus, or possible lubricant (patient orprovider use). Use of lubricant is not recommended. Solar [employer] Installation Supervisor: SEE NOTE [facility] Comment:YP, CT(ASCP)CT scree guevara location: [place] [address] Review Solar [employer] Installation Supervisor: SEE NOTE [facility] Comment:ALS, CT(ASCP)CT scre ening location: [place] [address] Pathologist [facility] PAP Infection [facility] See Note SEE NOTE [facility] Comment:EXPLANATORY NOTE:The Pap is a screening test for cervical cancer. It isnot a diagnostic test and is subject to false negativeand false positive results. It is most reliable when asatisfactory sample, regularly obtained, is submittedwith relevant clinical findings and history, and whenthe Pap result is evaluated along with historic andcurrent clinical information. 06/01/2024 06/01/2024 Narrative [facility] - 06/07/2024 11:45 AM EDT SEE SCANNED RESULTS IN EMR us Generic External Data Provider LAB PATHOLOGY ORD ERABLES Final Result [facility] [address] [place] [phone] [phone] * BI Mammogram Screening Tomosynthesis Bilateral (12/16/2023 4:20 PM EST) Anatomical Region Laterality Modality Breast Bilateral Mammography 12/16/2023 4:20 PM EST Narrative 01/04/2024 10:08 PM EDT [facility] [address] [place], [place] [address] Mammography Report Signed Patient: Manny Welsh MR# : [id number] : 1980 Acct:[id number] Age/Sex: 43 / F ADM Date: 12/16/23 Loc: HO.MAMMO Attending Dr: Xenia Alfaro BOXING PROMOTER Ordering Physician: Xenia Alfaro BOXING PROMOTER Results: 1Nega tive Date of Service: 12/16/23 Follow Up: 1 Year From Orig inal Mammogram Procedure(s): MM tomosynthesis screening BI Accession Number(s): [id number] cc: Xenia Alfaro BOXING PROMOTER EXAMINATION: MM SCREENING DIGITAL BREAST TOMOSYNTHESIS, BILATERAL CLINICAL INFORMATION: Screening. Asymptomatic. COMPARISON: Mammography: This is a baseline mammogram. TECHNIQUE: Digital breast tomosynthesis is performed in both the craniocaudal and mediolateral oblique views along with computer-aided detection (CAD). Synthesized 2D images are generated from the tomosynthesis. FINDINGS: The breasts are heterogeneously dense, which may obscure small masses (ACR BI-RADS breast composition Category c). There are no significant masses, abnormal calcifications, or other abnormalities. MM/MM tomosynthesis screening BI IMPRESSION: No mammographic evidence of malignancy. ASSESSMENT: BI-RADS BI-RADS 1 - Negative RECOMMENDATION: Routine annual mammography screening. 1 year F/U This examination should not preclude the clinical evaluation of a suspicious palpable abnormality. This patient's information was entered into a reminder system with a target due date for their next mammogram. Dictated By: Marguerite Lopez MD Signed By: <Electronically signed by Marguerite Lopez MD in OV> 01/04/24 2201 DD/ 1620 TD/TT: Tool Machinist: Procedure Note Donotuseinterpreter, Image - 01/04/2024 [facility] [address] [place] [address] Mammography Report Signed Patient: Manny WelshMR# : [id number] : 1980Acct:[id number] Age/Sex: 43 / FADM Date: 12/16/23 Loc: HO.MAMMO Attending Dr: Xenia MICHEL Ordering Physician: Xenia Alfaro FNPResults: 1Nega tive Date of Service: 12/16/23Follow Up: 1 Year From Orig inal Mammogram Procedure(s): MM tomosynthesis screening BI Accession Number(s): [id number] cc: Xenia Alfaro BOXING PROMOTER EXAMINATION: MM SCREENING DIGITAL BREAST TOMOSYNTHESIS, BILATERAL CLINICAL INFORMATION: Screening. Asymptomatic. COMPARISON: Mammography: This is a baseline mammogram. TECHNIQUE: Digital breast tomosynthesis is performed in both the craniocaudal and mediolateral oblique views along with computer-aided detection (CAD). Synthesized 2D images are generated from the tomosynthesis. FINDINGS: The breasts are heterogeneously dense, which may obscure small masses (ACR BI-RADS breast composition Category c). There are no significant masses, abnormal calcifications, or other abnormalities. MM/MM tomosynthesis screening BI IMPRESSION: No mammographic evidence of malignancy. ASSESSMENT: BI-RADS BI-RADS 1 - Negative RECOMMENDATION: Routine annual mammography screening. 1 year F/U This examination should not preclude the clinical evaluation of a suspicious palpable abnormality. This patient's information was entered into a reminder system with a target due date for their next mammogram. Dictated By: Marguerite Lopez MD Signed By: <Electronically signed by Marguerite Lopez MD in OV> 01/04/24 2201 DD/ 1620 TD/TT: Tool Machinist: [facility] BOXING PROMOTER IMG BI PROCEDURES Edited Resu lt - Final from Last 3 Months or Most Recently Relevant to Health Maintenance Insurance [facility] [place] [address] Care Teams Microsoft Dynamics Manager Architect Relationship Specialty Start Date End Date Xenia Alfaro FNP [address] [place] [address] [place] [address] PCP - General Family Medicine 12/24/22
== END 2025-10-10 13:44 | disposition home or self-care (01) ==
LOC: HO.HHCX 13:43
PROVIDERS: PCP Internal Medicine; Visit Provider Family Medicine
DX: M25.562 Pain in left knee (principal)
CPT/HCPCS: 73564

== ENCOUNTER → 2025-10-10 14:35 | Outpatient (BNV) | payer MEDICAID, SELFPAY | PROVIDERS: PCP Internal Medicine; Visit Provider Radiology Diagnostic Radiology | DX: M25.562 Pain in left knee (principal) | CPT/HCPCS: 73564 ==